=== PATIENT | female | born 2000 | race African-American/Black ===

== ENCOUNTER 2022-06-12 21:52 | Emergency (ER) | payer OTHER, SELFPAY ==
[2022-06-12 21:56] VITALS: BP 121/84; PULSE 88; RESP 18; TEMP 36.6; O2SAT 100; BMI 42.7
--- NOTE | 2022-06-12 22:22 | CT_ITS ---
INDICATION: headache EXAMINATION: CT BRAIN - CT Head or Brain W/O Contrast Injection TECHNIQUE: Multiple axial images were obtained of the head without intravenous contrast. A radiation dose optimization technique was used for this scan. IV Contrast dosage and agent: None. COMPARISON: None FINDINGS: BRAIN PARENCHYMA: No intra- or extra-axial hemorrhage. No evidence of acute infarct. No intracranial mass or mass effect. Posterior fossa structures are unremarkable. CSF SPACES: Appropriate for age. No hydrocephalus. Basal cisterns are patent. CALVARIUM, SKULL BASE, PARANASAL SINUSES AND MASTOID AIR CELLS: Clear. No discrete lytic or blastic abnormalities. ORBITS: Both globes, extraocular muscles, optic nerves and retrobulbar fat appear unremarkable. CT/Brain/Head without Contrast IMPRESSION: No acute intracranial findings. Electronically Signed: Ramu Chandler MD at 23:43 EST ,
--- NOTE | 2022-06-12 22:22 | EDS_ITS ---
HPI History of Present Illness Chief Complaint: Headache Informant: patient Onset/Context/Timing Onset: Today Context: Gradual Timing: Continuous Current Severity: Moderate Maximum Severity: Moderate Associated Symptoms/Injury Associated Symptoms: Positive for Nausea and Vomiting; Negative for Fever, Sore Throat, Sinus Pressure, Numbness, Tingling, Preceding Aura, Visual Changes, Blurred Vision, Photophobia or Visual Loss Injury - SAUL: Negative for Direct Trauma, Fall or Assault Narrative Narrative: 22-year-old female history of headaches and anemia. States she has had a headache since around 6:00 today. Gradual onset. Diffuse in her forehead. Associated with photophobia. No fever. She has nausea but no vomiting. Moving all 4 extremities. No history of intercranial bleed or aneurysm. No history of stroke. On no blood thinners. No trauma. Denies any neck pain. No neurological symptoms. States that she gets headaches frequently but this is worse than her baseline. No family history of intracranial bleeds or aneurysms. Prior similar symptoms: Yes Recent Illness/Hospitalization: No PFSH PFSH Medical History Anemia Home Medications NK 06/12/22 [History Last Taken Unknown] Allergy/AdvReac Type Severity Reaction Status Date / Time No Known Allergies Allergy Verified 06/12/22 22:00 Social History Smoking Status: Never smoker ROS ROS ED ROS Narrative Headache. Nausea. Photophobia. Review of Systems ROS Unobtainable: Denies due to encephalopathy Constitutional Constitutional ED: Denies chills or fever(s) Eyes Eyes: Denies blurry vision ENT ENT ED: Denies ear pain Cardiovascular Cardiovascular: Denies chest pain or palpitations Respiratory/Chest Respiratory/Chest: Denies cough or dyspnea Gastrointestinal Gastrointestinal: Reports nausea; Denies abdominal pain, constipation, diarrhea, melena or vomiting Genitourinary Genitourinary ED: Denies dysuria Musculoskeletal Musculoskeletal: Denies arthralgias Integumentary Denies abscess Neurologic Neurologic: Reports headache(s) Psychiatric Psychiatric: Denies anxiety Endocrine Endocrinology: Denies polydipsia Hematologic/Lymphatic Hematologic/Lymphatic: Denies easy bleeding or easy bruising Allergic/Immunologic Allergic/Immunologic ED: Denies mouth swelling or tongue swelling EXAM Physical Exam Narrative Exam Narrative: 22-year-old female vital signs stable afebrile. Blood pressure 121/84. H EENT exam unremarkable atraumatic. Pupils round reactive light. No facial droop. Normal speech. No signs of trauma to face or scalp. Nontender. Neck nontender no meningismus. No tension in his chest. Lungs clear to auscultation bilaterally. Heart regular rhythm rate about 90 no murmur. Chest wall nontender. Abdomen soft nontender. Moving all 4 extremities. 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 Normal dorsi plantarflexion. Normal fingertip to nose. No drift of upper or lower extremities. She is awake alert answering questions following co mmands. NIH is 0. Const Vital Signs: 06/12/22 21:56 Temperature 97.9 F Temperature Source Temporal Pulse Rate 88 Respiratory Rate 18 Blood Pressure 121/84 H Blood Pressure Mean 96 Pulse Ox 100 Oxygen Delivery Method Room Air Positive well nourished, well developed and obese; Negative for cachectic, contractures or unkempt General Appearance ED: well developed; Negative for unkempt, cachectic, contractures, cyanotic, diaphoretic or NAD Nutritional Appearance: obese; Negative for cachectic HEENT Reports normocephalic and moist mucous membranes; Denies dry mucous membranes atraumatic; Negative for trauma, tenderness, temporal artery tenderness or vesicular rash Face and Sinus: Negative for sinus tenderness Mouth ED: No dry mucous membranes Mouth: No dry mucous membranes Eyes PERRL and EOMs intact bilaterally General Eye ED: Negative for pale conjunctiva or scleral icterus Neck no lymphadenopathy, supple, no meningeal signs and no JVD General: Negative for tenderness Resp normal respiratory effort and clear to auscultation bilaterally Effort and Inspection: Negative for retractions Auscultation: Negative for rales, rhonchi or wheezes Cardio regular rate, regular rhythm, S1 normal heart sound, S2 normal heart sound and no murmurs GI non-tender and non-distended Auscultation: normoactive bowel sounds Palpation: soft; Negative for firm or tender Back/Spine no CVA tenderness General Back: Negative for CVA tenderness Cervical Spine: Negative for cervical spine tenderness Thoracic Spine / Upper Back: Negative for thoracic spinal tenderness Lumbar Spine / Lower Back: Negative for lumbar spinal tenderness Extremity normal to inspection and full ROM General Extremety ED: Negative for edema or tenderness General Extremity: Negative for edema Neuro oriented x3, CN's II-XII intact bilaterally and no sensory deficits noted Sensorium / Orientation: awake, alert, oriented to person, oriented to place and oriented to time; Negative for orientation impaired, lethargic, stuporous or other Coordination / Balance: [id number] test normal Speech: speech normal Motor Exam: strength 5/5 throughout Comatose: Negative for other Psych mental status grossly normal Appearance: Negative for unkempt Attitude: No agitated Mood & Affect: Negative for depressed, anxious or tearful Skin Lesions: no lesions Rashes: no rashes NIHSS NIHSS Initial: 1a Level of Consciousness: 0 1b LOC Questions (Score 2 if aphasic/stupor): 0 1c LOC Commands (Only score 1st attempt): 0 2 Best Gaze (If aphasic, use reflexive mvmts.): 0 3 Visual: 0 4 Facial Palsy: 0 5 Motor Arm Right (UN = amputation/fusion): 0 5 Motor Arm Left: 0 6 Motor Leg Right: 0 6 Motor Leg Left: 0 7 Limb ataxia (Only + if out of proportion): 0 8 Sensory (Aphasia/stupor=0 or 1, coma=2): 0 9 Best Language: 0 10 Dysarthria (mute, coma=2, intubated=UN): 0 11 Extinction and Inattention (only scored if +): 0 Total Score: 0 MDM MDM MDM Narrative Medical decision making narrative: 22-year-old female with a headache. Neurologic exam normal. CAT scan of her brain. IV fluids. Toradol Benadryl and Reglan. Reassess. She does have a history of anemia I am checking blood counts and electrolytes. Repeat exam at 11:40 PM patient doing well. Headache is resolving. Repeat neurologic exam remains normal and unchanged. I discussed with her her lab te st. She knows she has a history of anemia she does not know what her hemoglobin normally runs. Clinically she looks well. Once we have the official CAT scan reading of her brain she will be discharged back to the [facility]. Lab Data Attestation: I reviewed the patient's lab results. Lab results narrative: CBC shows a white count of 14.3. H&H 9.6 and 34.1 with a history of anemia. Platelets 536. Electrolytes show a gap of 9 normal BUN of 16 creatinine 0.66. Glucose 107. No old labs available for comparison. CAT scan of brain shows no acute abnormality. Awaiting formal radiologist interpretation. I did review the film. Radiologist read the CAT scan of brain shows no acute abnormality. Labs: Laboratory Results - last 24 hr 06/12/22 06/12/22 22:50 22:50 WBC 14.3 H RBC 5.04 Hgb 9.6 L Hct 34.1 L MCV 67.7 L MCH 19.0 L MCHC 28.2 L RDW Std Deviation 42.0 RDW Coeff of Vanessa 18.3 H Plt Count 536 H MPV 9.7 Immature Gran % (Auto) 0.300 Neut % (Auto) 73.6 H Lymph % (Auto) 22.0 [place] % (Auto) 3.3 Eos % (Auto) 0.7 Baso % (Auto) 0.1 Absolute Neuts (auto) 10.5 H Absolute Lymphs (auto) 3.14 Nucleated RBC % 0 Sodium 138 Potassium 4.0 Chloride 106 Carbon Dioxide 23.0 Anion Gap 9 BUN 6 L Creatinine 0.66 Estim Creat Clear Calc 131.12 Est GFR (MDRD) Af Amer 145 Est GFR (MDRD) Non-Af 120 BUN/Creatinine Ratio 9.1 L Glucose 107 H Calcium 9.9 Radiography Diagnostic Testing: Clinical Impression(s) from Imaging Studies Brain CT 06/12/22 22:22 IMPRESSION: No acute intracranial findings. Electronically Signed: Ramu Chandler MD at 23:43 EST Reading Location ID and State: [address] [place] [address] Tel , Service support , Discharge Plan Triage Chief Complaint: Headache ED Provider: Julio Mott Dx/Rx/DC Orders Clinical Impression: Acute headache, History of anemia Instructions: ED Headache Unspecified Prescriptions: No Action NK Primary Care Provider: Care Physician,No Primary Referrals: Ephraim Alex MD [Med Staff - Industrial Illuminating Engineer] - 3-5 Days if not improving NOT,DEFINED [Non-Staff] - Activity Restrictions/Additional Instructions: Plenty of fluids and rest. Motrin and Tylenol for headache. Follow-up with a local physician if you are not improving. Return if you feel worse. Headaches getting worse or you develop a fever. Disposition Disposition: Home, Self Care
[2022-06-12 22:58] LABS: Absolute Lymphocyte Count 3.14 X10^3/uL (0.83-4.51); Absolute Neutrophil Count 10.5 X10^3/uL (2.0-7.7); Basophil# 0.02 X10^3/uL; Basophil% 0.1 % (0-1); Eosinophils% 0.7 % (0-5); Hematocrit 34.1 % (37-47); Hemoglobin 9.6 g/dL (12.0-15.0); Lymphocyte # 3.14 X10^3/ul (0.83-4.51); Mean Corp Hgb Conc 28.2 g/dL (32-36); Mean Corpuscular Volume 67.7 fL (81-99); Mean Platelet Vol. 9.7 fl (6.2-12.0); Monocyte# 0.47 X10^3/uL; Monocyte% 3.3 % (0-10); NRBC Flagged by Analyzer 0 % (0-5); Neutrophil # 10.53 X10^3/uL (2.7-7.7); Neutrophil % 73.6 % (47-70); Platelet Count 536 K/mm3 (150-450); RBC Distribution Width CV 18.3 % (11.6-14.6); Red Blood Count 5.04 M/mm3 (4.2-5.4); White Blood Count 14.3 K/mm3 (4.4-11.0)
[2022-06-12] MEDS: 0.9% Normal Saline 1,000 ML 1000 ML IV (23:02)
[2022-06-12] MEDS: Metoclopramide 10 MG/2 ML Vial 5 MG IV (23:02)
[2022-06-12] MEDS: DiphenhydrAMINE 50 MG/ML Syringe 25 MG IV (23:04)
[2022-06-12] MEDS: Ketorolac 30 MG/ML Syringe IV (23:05)
[2022-06-12 23:12] LABS: Anion Gap 9 (5-15); BUN 6 mg/dL (7-18); BUN/Creat Ratio 9.1 RATIO (10-20); Calcium,Total 9.9 mg/dL (8.5-10.1); Chloride 106 mmol/L (98-107); Creatinine, Serum 0.66 mg/dL (0.55-1.02); EST Glomerular Filtration Rate 120 mL/min (>60); Est Glom Filt Rate - Afr Amer 145 mL/min (>60); Estimated Creatinine Clearance 131.12 ml/min; Glucose 107 mg/dL (74-106); Sodium Level 138 mmol/L (136-145)
[2022-06-13 00:11] VITALS: BP 116/56; PULSE 85; RESP 16
== END 2022-06-13 00:11 | disposition home or self-care (01) ==
PROVIDERS: Emergency Provider Emergency Medicine; Visit Provider Emergency Medicine
DX: R51.9 Headache, unspecified (principal); R11.2 Nausea with vomiting, unspecified; H53.149 Visual discomfort, unspecified; Z86.2 Personal history of diseases of the blood and blood-forming organs and certain disorders involving the immune mechanism
CPT/HCPCS: 70450; 80048; 85025; 96361; 96374; 96375; 99285; J7030; A4216